=== PATIENT | male | born 1950 | race Two or more races ===

== ENCOUNTER 2024-07-18 11:15 | Inpatient (IN) | payer OTHER ==
[~2024-07-18] VITALS: Ht 167.6 cm; Wt 64.4 kg
[2024-07-18 14:28] LABS: RH POSITIVE
[2024-07-22] MEDS ORDERED: METRONIDAZOLE/SODIUM CHLORIDE 5 MG/ML ML IV ONE (10:45)
[2024-07-22] MEDS ORDERED: LIDOCAINE HCL 1%/EPINEPHRINE 20ML VIAL IJ ONE (10:45)
[2024-07-22] MEDS ORDERED: CEFTRIAXONE SODIUM 2,000 MG VIAL IV ONE (10:45)
[2024-07-22] MEDS ORDERED: BUPIVACAINE HCL/PF 0.25% 30ML VIAL InF ONE (10:45)
[2024-07-22] MEDS ORDERED: DEXTROSE 50 % IN WATER 0.5 G/ML DISP.SYRIN IV PRN (12:00)
[2024-07-22] MEDS ORDERED: ONDANSETRON HCL 2 MG/ML VIAL IV PRN (12:00)
[2024-07-22] MEDS ORDERED: RINGERS SOLUTION,LACTATED 1,000 ML IV SCH (12:00)
[2024-07-22] MEDS ORDERED: MORPHINE SULFATE 4 MG/ML CARTRIDGE IV PRN (12:00)
[2024-07-22] MEDS ORDERED: OxyCODONE HCL 5 MG TABLET (ROXICODONE) PO PRN (12:00)
[2024-07-22] MEDS ORDERED: MORPHINE SULFATE 4 MG/ML VIAL IV ONE ×3 (12:15→17:45)
[2024-07-22] MEDS ORDERED: HYOSCYAMINE SULFATE 0.125 MG TAB.SUBL SL SCH (13:00)
[2024-07-22 13:11] LABS: HEMATOCRIT 32.3 % (39.0-48.0); HEMOGLOBIN 10.7 g/dL (13-16.00); MEAN CELL VOLUME 87.1 fL (80.0-100.00); MEAN CORPUSCULAR HEMOGLOBIN 28.8 pg (27.00-32.0); PLATELET COUNT 240 K/uL (150-450); RED CELL DISTRIBUTION WIDTH 15.9 % (11.5-14.5)
[2024-07-22] MEDS ORDERED: ACETAMINOPHEN 500 MG GEL..CAP PO SCH (14:00)
[2024-07-22 14:14] LABS: CALCIUM 8.9 mg/dL (8.5-10.1); CREATININE SERUM 0.92 mg/dL (0.70-1.30); GFR 80.42; PHOSPHOROUS 3.7 mg/dL (2.5-4.9); POTASSIUM 4.02 mEq/L (3.5-5.1)
[2024-07-22] MEDS ORDERED: GABAPENTIN 300 MG CAPSULE PO SCH (17:00)
[2024-07-22] MEDS ORDERED: POLYETHYLENE GLYCOL 3350 17 GM BLIST.PACK PO SCH (17:00)
[2024-07-22] MEDS ORDERED: PIPERACILLIN/TAZOBACTAM SODIUM 3.375 GM in 0.9 % SODIUM CHLORIDE 100 ML IV SCH (18:00)
[2024-07-22] MEDS ORDERED: FAMOTIDINE/PF 20 MG/2 ML VIAL IV PUSH SCH (21:00)
[2024-07-22 21:12] VITALS: BP 120/67; O2SAT 99
[2024-07-23] VITALS: BP 129/78; O2SAT 96
[2024-07-23 06:17] LABS: HEMATOCRIT 27.7 % (39.0-48.0); HEMOGLOBIN 9.5 g/dL (13-16.00); MEAN CELL VOLUME 85.4 fL (80.0-100.00); MEAN CORPUSCULAR HEMOGLOBIN 29.2 pg (27.00-32.0); MEAN CORPUSCULAR HGB CONC 34.2 g/dl (32.0-36.0); PLATELET COUNT 203 K/uL (150-450); RED BLOOD COUNT 3.24 M/uL (4.00-6.00); RED CELL DISTRIBUTION WIDTH 15.7 % (11.5-14.5)
[2024-07-23 07:01] LABS: ALBUMIN 2.2 gm/dL (3.4-5.0); CALCIUM 7.9 mg/dL (8.5-10.1); CREATININE SERUM 0.88 mg/dL (0.70-1.30); GFR 84.65; MAGNESIUM 1.8 mg/dL (1.8-2.4); PHOSPHOROUS 4.2 mg/dL (2.5-4.9); POTASSIUM 4.91 mEq/L (3.5-5.1)
[2024-07-23 08:00] VITALS: BP 150/90; O2SAT 100
[2024-07-23] MEDS ORDERED: ENOXAPARIN SODIUM 40 MG/0.4 ML SYRINGE SUBCUTANEO SCH (17:00)
[2024-07-23 19:12] VITALS: BP 134/75; O2SAT 98
[2024-07-24] VITALS: BP 127/74; O2SAT 99
[2024-07-24 08:00] VITALS: BP 132/72; O2SAT 99
[2024-07-24] MEDS ORDERED: ENOXAPARIN SODIUM 40 MG/0.4 ML SYRINGE SUBCUTANEO SCH (09:00)
[2024-07-24 17:07] VITALS: BP 108/66; O2SAT 98
[2024-07-24 23:10] VITALS: BP 110/74; O2SAT 95
[2024-07-25 08:23] VITALS: BP 110/68; O2SAT 97
[2024-07-25] MEDS ORDERED: HYOSCYAMINE0.125 M1 SL (11:18)
[2024-07-25] MEDS ORDERED: INTESTINEX680 M1 PO (11:18)
== END 2024-07-25 16:36 | disposition home or self-care (01) | DRG 330 ==
LOC: O/R 07-22 08:39 → SURG 07-22 08:39
PROVIDERS: ADMIT Surgery; ATTEND Surgery
PROC: 07BB4ZZ Excision of Mesenteric Lymphatic, Percutaneous Endoscopic Approach (ICD-10-PCS; 2024-07-22)
PROC: 0W9F4ZZ Drainage of Abdominal Wall, Percutaneous Endoscopic Approach (ICD-10-PCS; 2024-07-22)
PROC: 0DTG4ZZ Resection of Left Large Intestine, Percutaneous Endoscopic Approach (ICD-10-PCS; principal; 2024-07-22 10:30)
DX: C18.4 Malignant neoplasm of transverse colon (principal); N32.1 Vesicointestinal fistula; K59.09 Other constipation; R59.0 Localized enlarged lymph nodes

== ENCOUNTER 2024-09-05 07:21 | Day surgery (SDC) | payer OTHER ==
[2024-08-27 14:52] LABS: INR 1.01; PARTIAL THROMBOPLASTIN TIME 29.9 SECONDS (22.0-34.0)
[2024-08-27 15:04] LABS: ALBUMIN 3.9 gm/dL (3.4-5.0); CALCIUM 9.9 mg/dL (8.5-10.1); CREATININE SERUM 0.85 mg/dL (0.70-1.30); GFR 88.11; PHOSPHOROUS 3.5 mg/dL (2.5-4.9); POTASSIUM 4.99 mEq/L (3.5-5.1)
[2024-08-27 15:10] LABS: URINE APPEARANCE Clear; URINE BILIRRUBIN Negative (NEGATIVE); URINE BLOOD Negative; URINE COLOR Yellow; URINE GLUCOSE Negative (NEGATIVE); URINE KETONE Negative (NEGATIVE); URINE LEUKOCYTE Negative; URINE NITRATE Negative; URINE PROTEIN Negative (NEGATIVE); URINE UROBILINOGEN 0.2 E.U./dl
[2024-08-27 15:14] LABS: URINE BACTERIA 7.5 uL (0.0-1933); URINE RBC 2.2 uL (0.0-20.8)
[2024-08-27 15:39] LABS: URINE EPITHELIAL CELLS 1.3 uL (0.0-38.8); URINE WBC 1.6 uL (0.0-23.2)
[~2024-09-05 07:21] MED LIST: HYOSCYAMINE0.125 M1 SL; INTESTINEX680 M1 PO
[2024-09-05] MEDS ORDERED: HEPARIN SODIUM,PORCINE 500 UNITS/5 ML VIAL IV ONE (10:45)
[2024-09-05] MEDS ORDERED: CEFAZOLIN SODIUM 1,000 MG VIAL IV ONE (10:45)
[2024-09-05] MEDS ORDERED: TRAM1TAB98 PO (11:01)
== END 2024-09-05 13:20 | disposition home or self-care (01) ==
LOC: CIR.AMB 07:21
PROVIDERS: ATTEND Surgery
DX: C18.5 Malignant neoplasm of splenic flexure (principal)
CPT/HCPCS: 36561; C1751